=== PATIENT | female | born 1995 | race Caucasian/White ===

== ENCOUNTER 2018-03-12 06:39 | Inpatient (IN) | payer BC ==
[2018-03-12] MEDS ORDERED: Misoprostol 50 MCG (1/2 of 100 MCG) Tab ONE ×2 (07:29→12:15)
[2018-03-12] MEDS ORDERED: Ondansetron 4 MG/2 ML SDV IV PRN (07:37)
[2018-03-12] MEDS ORDERED: Acetaminophen 325 MG Tab PO PRN (07:37)
[2018-03-12] MEDS ORDERED: fentaNYL 100 MCG/2 ML SDV IVPUSH PRN (07:37)
[2018-03-12] MEDS ORDERED: Sodium Chloride 0.9% 10 ML Syringe FLUSH PRN (07:37)
[2018-03-12] MEDS ORDERED: Misoprostol 50 MCG (1/2 of 100 MCG) Tab VAG ONE ×2 (07:51→12:20)
--- NOTE | 2018-03-12 08:10 | PCM.LDHP ---
L&D History of Present Illness - General Date of Service: 03/12/18 (Induction 40 5/7) Admit Problem/Dx: Patient Status Order with Admit Dx/Problem 03/12/18 07:37 Patient Status [ADT] Routine Admission Diagnosis/Problem Admission Diagnosis/Problem Source of Information: Patient History Limitations: Reports: No Limitations - History of Present Illness Introduction:: 22 year old 40 5/7 RADHA 03/06/18 here for planned induction. 135/82 this am. Protein in urine and looks puffy today. Has had adequate care. Lab: Passed glucose at 124. GBS POSITIVE treated with PCN, ceftin allergy. Nursing staff to monitor for adverse reactions. Has tolerated amoxicillin in the past without problems. 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: : 1 Para: 0 LMP (Approximate): (RADHA 03/06/18) Dermatologic History: Reports: Other (See Below) Other Dermatologic History: rash with - Infectious Disease History Infectious Disease History: Reports: Chicken Pox - Past Surgical History HEENT Surgical History: Reports: Adenoidectomy, Tonsillectomy Social & Family History - Family History Family Medical History: Noncontributory - Tobacco Use Smoking Status *Q: Never Smoker Second Hand Smoke Exposure: No - Caffeine Use Caffeine Use: Reports: None - Recreational Drug Use Recreational Drug Use: No H&P Review of Systems - Review of Systems: Review Of Systems: See Below General: Reports: Other (puffy face today) HEENT: Reports: No Symptoms Pulmonary: Reports: No Symptoms Cardiovascular: Reports: Blood Pressure Problem (elevated this morning) Gastrointestinal: Reports: No Symptoms Genitourinary: Reports: No Symptoms Musculoskeletal: Reports: No Symptoms Skin: Reports: No Symptoms Psychiatric: Reports: No Symptoms Neurological: Reports: No Symptoms Hematologic/Lymphatic: Reports: No Symptoms Immunologic: Reports: No Symptoms L&D Exam - Exam Exam: See Below - Vital Signs Weight: 115.212 kg - OB Specific Contraction Intensity: random, not feeling them Movement: Active Heart Tones: Present Heart Tones per Min: 150 Heart Rate (FHR) Variability: Moderate (6-25 bmp) Presentation: Vertex Estimated Weight: 8# - Fernandez Score Fernandez Score Cervix Position: Midposition Fernandez Score Consistency: Soft Fernandez Score Effacement: 51-70% Fernandez Score Dilation: 3-4 cm Fernandez Score Infant's Station: -3 Fernandez Score Total: 7 - Exam General: Alert, Oriented HEENT: PERRLA, Hearing Intact, Mucosa Moist & [place], Pupils Equal, Pupils Reactive Neck: Supple, Trachea Midline Lungs: Clear to Auscultation, Normal Respiratory Effort Cardiovascular: Regular Rate, Regular Rhythm GI/Abdominal Exam: Normal Bowel Sounds, Soft Rectal Exam: Normal Exam, Normal Rectal Tone Genitourinary: Cervical dilitation, Enlarged uterus, Vaginal discharge Back Exam: Normal Inspection, Full Range of Motion Extremities: Normal Inspection, Normal Range of Motion, Non-Tender, No Pedal Edema Skin: Warm, Dry, Intact Neurological: Cranial Nerves Intact, Normal Gait Psychiatric: Alert, Normal Affect, Normal Mood - Patient Data Lab Results Last 24 hrs: Laboratory Results - last 24 hr 03/12/18 03/12/18 03/12/18 Range/Units 06:50 06:50 06:57 WBC 14.7 H (4.5-11.0) K/uL RBC 4.30 (3.30-5.50) M/uL Hgb 13.2 (12.0-15.0) g/dL Hct 39.2 (36.0-48.0) % MCV 91 (80-98) fL MCH 31 (27-31) pg MCHC 34 (32-36) % Plt Count 284 (150-400) K/uL Neut % (Auto) 73 H (36-66) % Lymph % (Auto) 17 L (24-44) % [place] % (Auto) 9 H (2-6) % Eos % (Auto) 1 L (2-4) % Baso % (Auto) 0 (0-1) % Urine Color Yellow Urine Appearance Slightly cloudy Urine pH 5.0 (4.5-8.0) Ur Specific [place] 1.020 (1.008-1.030) Urine Protein 30 H (NEGATIVE) mg/dL Urine Glucose (UA) Normal (NEGATIVE) mg/dL Urine Ketones Negative (NEGATIVE) mg/dL Urine Occult Blood Negative (NEGATIVE) Urine Nitrite Negative (NEGATIVE) Urine Bilirubin Negative (NEGATIVE) Urine Urobilinogen Normal (NORMAL) mg/dL Ur Leukocyte Esterase Moderate (NEGATIVE) Urine RBC Not seen (0-5) Urine WBC 10-20 H (0-5) Ur Epithelial Cells Many Amorphous Sediment Not seen Urine Bacteria Moderate Urine Mucus Many Urine Opiates Screen Negative (NEGATIVE) Ur Oxycodone Screen Negative (NEGATIVE) Urine Methadone Screen Negative (NEGATIVE) Ur Propoxyphene Screen Negative (NEGATIVE) Ur Barbiturates Screen Negative (NEGATIVE) Ur Tricyclics Screen Negative (NEGATIVE) Ur Phencyclidine Scrn Negative (NEGATIVE) Ur Amphetamine Screen Negative (NEGATIVE) U Methamphetamines Scrn Negative (NEGATIVE) Urine MDMA Screen Negative (NEGATIVE) U Benzodiazepines Scrn Negative (NEGATIVE) U Cocaine Metab Screen Negative (NEGATIVE) U Marijuana (THC) Screen Negative (NEGATIVE) Result Diagrams: 03/12/18 06:57 - Problem List (1) Elective induction of labor planned SNOMED Code(s): 509926103 ICD Code: [id number] - Status: Acute Current Visit: Yes (2) GBS (group B Streptococcus carrier), +RV culture, currently SNOMED Code(s): 9859902147372, [id number], 1973250550297 ICD Code: O99.820 - STREPTOCOCCUS B CARRIER STATE COMPLICATING Status: Acute Current Visit: Yes (3) SNOMED Code(s): 07764377 ICD Code: Z34.90 - ENCNTR FOR SUPRVSN OF NORMAL , UNSP, UNSP TRIMESTER Status: Acute Current Visit: Yes Qualifiers: Weeks of gestation: 40 weeks Qualified Code(s): Z3A.40 - 40 weeks gestation of Problem List Initiated/Reviewed/Updated: Yes Orders Last 24hrs: Active Orders 24 hr Category Date Time Status Patient Status [ADT] Routine ADT 03/12/18 07:37 Active Antiembolic Devices [RC] .Routine Care 03/12/18 07:41 Active Communication Order [RC] ASDIRECTED Care 03/12/18 07:37 Active Heart Tones [RC] PER UNIT ROUTINE Care 03/12/18 07:37 Active Non Stress Test [RC] Click to Edit Care 03/12/18 07:37 Active Notify Provider Vital Signs [RC] PRN Care 03/12/18 07:37 Active Notify Provider [RC] PRN Care 03/12/18 07:37 Active Peripheral IV Care [RC] . DIRECTED Care 03/12/18 07:41 Active VTE/DVT Education [RC] Click to Edit Care 03/12/18 07:41 Active Vital Signs [RC] PER UNIT ROUTINE Care 03/12/18 07:37 Active Regular Diet [DIET] Diet 03/12/18 Dinner Active Acetaminophen [Tylenol] Med 03/12/18 07:37 Active 650 mg PO Q4H PRN Ondansetron [Zofran] Med 03/12/18 07:37 Active 4 mg IV Q4H PRN Oxytocin/Normal Saline [Pitocin in NS 20 Units/1,000 ML Med 03/12/18 12:00 Active ] 20 unit in 1,000 ml IV ASDIRECTED Penicillin G Potassium [Pfizerpen] 2.5 millunits Med 03/12/18 12:30 Active Sodium Chloride 0.9% [Normal Saline] 50 ml IV Q4H Penicillin G Potassium [Pfizerpen] 5 millunits Med 03/12/18 08:30 Active Sodium Chloride 0.9% [Normal Saline] 100 ml IV ONETIME Sodium Chloride 0.9% [Saline Flush] Med 03/12/18 07:37 Active 10 ml FLUSH ASDIRECTED PRN fentaNYL [Sublimaze] Med 03/12/18 07:37 Active 100 mcg IVPUSH Q1H PRN DVT/VTE Prophylaxis Reflex [OM.PC] Routine Oth 03/12/18 07:37 Ordered Peripheral IV Insertion Adult [OM.PC] Routine Oth 03/12/18 07:37 Ordered Saline Lock Insert [OM.PC] Routine Oth 03/12/18 07:37 Ordered Resuscitation Status Routine Resus Stat 03/12/18 07:37 Ordered Medication Orders Acetaminophen (Tylenol) 650 mg PO Q4H PRN PRN Reason: Pain (Mild 1-3) and fever Fentanyl (Sublimaze) 100 mcg IVPUSH Q1H PRN PRN Reason: Pain (moderate 4-6) Penicillin G Potassium 5 (millunits/ Sodium Chloride) 100 mls @ 200 mls/hr IV ONETIME ONE Stop: 03/12/18 08:59 Penicillin G Potassium 2.5 (millunits/ Sodium Chloride) 50 mls @ 100 mls/hr IV Q4H GRIS Oxytocin/Sodium Chloride (Pitocin In Ns 20 Units/1,000 Ml) 20 unit in 1,000 mls @ 999 mls/hr IV ASDIRECTED GRIS; Protocol Ondansetron HCl (Zofran) 4 mg IV Q4H PRN PRN Reason: Nausea/Vomiting Sodium Chloride (Saline Flush) 10 ml FLUSH ASDIRECTED PRN PRN Reason: Keep Vein Open Assessment/Plan Comment:: 03/12/18 22 year old 40 07/09 here for planned induction of labor. Fernandez score 7. Minimal random contractions. Baseline FHT's 150. Category 1 tracing. SVE /-3 Misoprostol 50 mcg placed vaginally GBS POSITIVE treated Plan: Will reassess at 1230. [address] another dose of Misoprostol at that time. Pain medications per patient request. May eat after 1 hour. Intermittent monitoring. Nursing to monitor for adverse PCN affects.
[2018-03-12] MEDS ORDERED: Sodium Chloride 0.9% 1,000 ML IV SCH (08:15)
[2018-03-12] MEDS ORDERED: Sodium Chloride 0.9% 10 ML SDV IV SCH (08:15)
[2018-03-12] MEDS ORDERED: Penicillin G Potassium 5 MILLUNITS in Sodium Chloride 0.9% 100 ML IV ONE (08:30)
--- NOTE | 2018-03-12 12:26 | PCM.PNLD ---
Labor Progress Note - VS & Meds Vital Signs: Last Vital Signs Temp 97.8 F 03/12/18 10:00 Pulse 101 H 03/12/18 10:00 Resp 18 03/12/18 10:00 BP 119/79 03/12/18 10:00 Pulse Ox 93 L 03/12/18 10:00 Active Medications: Current Medications Acetaminophen (Tylenol) 650 mg PO Q4H PRN PRN Reason: Pain (Mild 1-3) and fever Fentanyl (Sublimaze) 100 mcg IVPUSH Q1H PRN PRN Reason: Pain (moderate 4-6) Penicillin G Potassium 2.5 (millunits/ Sodium Chloride) 50 mls @ 100 mls/hr IV Q4H GRIS Oxytocin/Sodium Chloride (Pitocin In Ns 20 Units/1,000 Ml) 20 unit in 1,000 mls @ 999 mls/hr IV ASDIRECTED GRIS; Protocol Sodium Chloride (Normal Saline) 1,000 mls @ 125 mls/hr IV ASDIRECTED GRIS Last Admin: 03/12/18 08:34 Dose: 125 mls/hr Misoprostol (Cytotec) 50 mcg VAG ONETIME ONE Stop: 03/12/18 12:21 Ondansetron HCl (Zofran) 4 mg IV Q4H PRN PRN Reason: Nausea/Vomiting Sodium Chloride (Saline Flush) 10 ml FLUSH ASDIRECTED PRN PRN Reason: Keep Vein Open Discontinued Medications Penicillin G Potassium 5 (millunits/ Sodium Chloride) 100 mls @ 200 mls/hr IV ONETIME ONE Stop: 03/12/18 08:59 Last Admin: 03/12/18 08:34 Dose: 200 mls/hr Misoprostol (Cytotec) Confirm Administered Dose 50 mcg .ROUTE .STK-MED ONE Stop: 03/12/18 07:30 Last Admin: 03/12/18 08:02 Dose: Not Given Misoprostol (Cytotec) 50 mcg VAG ONETIME ONE Stop: 03/12/18 07:52 Last Admin: 03/12/18 08:00 Dose: 50 mcg Misoprostol (Cytotec) Confirm Administered Dose 50 mcg .ROUTE .STK-MED ONE Stop: 03/12/18 12:16 - Uterine Contractions Uterine Monitoring Mode: External [place] Contraction Frequency (min): x2 Contraction Duration (sec): 40-80 Contraction Intensity: Mild Uterine Resting Tone: Soft - Monitoring Monitor Mode: External Ultrasound Heart Rate (FHR) Baseline: 150 Heart Rate (FHR) Variability: Moderate (6-25 bmp) Accelerations: Present, 15x15 Decelerations: None Strip Review: Category I - Vaginal Exam Dilation (cm): 2-3 Effacement (Percent): 60 Station: -1 Cervical Position: Midposition Sterile Vaginal Exam Performed By: Fernanda Jenkins Vaginal Exam Comment: baby has come down some - Labor Progress (Free Text) Labor Progress: No real contractions from the dose this morning. will repeat the dose and reassess at 1600. monitor for labor up and about after one hour of monitoring. 50 mcg Misoprostol placed vaginally at 1215
[2018-03-12] MEDS: Penicillin G Potassium 2.5 MILLUNITS in Sodium Chloride 0.9% 50 ML IV SCH ×3 (12:28→21:15)
--- NOTE | 2018-03-12 15:52 | PCM.PNLD ---
Labor Progress Note - VS & Meds Vital Signs: Last Vital Signs Temp 36.8 C 03/12/18 15:00 Pulse 96 03/12/18 15:00 Resp 18 03/12/18 15:00 BP 140/92 H 03/12/18 15:00 Pulse Ox 94 L 03/12/18 15:00 Active Medications: Current Medications Acetaminophen (Tylenol) 650 mg PO Q4H PRN PRN Reason: Pain (Mild 1-3) and fever Fentanyl (Sublimaze) 100 mcg IVPUSH Q1H PRN PRN Reason: Pain (moderate 4-6) Penicillin G Potassium 2.5 (millunits/ Sodium Chloride) 50 mls @ 100 mls/hr IV Q4H GRIS Last Admin: 03/12/18 12:28 Dose: 100 mls/hr Oxytocin/Sodium Chloride (Pitocin In Ns 20 Units/1,000 Ml) 20 unit in 1,000 mls @ 999 mls/hr IV ASDIRECTED GRIS; Protocol Sodium Chloride (Normal Saline) 1,000 mls @ 125 mls/hr IV ASDIRECTED GRIS Last Admin: 03/12/18 08:34 Dose: 125 mls/hr Ondansetron HCl (Zofran) 4 mg IV Q4H PRN PRN Reason: Nausea/Vomiting Sodium Chloride (Saline Flush) 10 ml FLUSH ASDIRECTED PRN PRN Reason: Keep Vein Open Discontinued Medications Penicillin G Potassium 5 (millunits/ Sodium Chloride) 100 mls @ 200 mls/hr IV ONETIME ONE Stop: 03/12/18 08:59 Last Admin: 03/12/18 08:34 Dose: 200 mls/hr Misoprostol (Cytotec) Confirm Administered Dose 50 mcg .ROUTE .STK-MED ONE Stop: 03/12/18 07:30 Last Admin: 03/12/18 08:02 Dose: Not Given Misoprostol (Cytotec) 50 mcg VAG ONETIME ONE Stop: 03/12/18 07:52 Last Admin: 03/12/18 08:00 Dose: 50 mcg Misoprostol (Cytotec) Confirm Administered Dose 50 mcg .ROUTE .STK-MED ONE Stop: 03/12/18 12:16 Last Admin: 03/12/18 12:28 Dose: Not Given Misoprostol (Cytotec) 50 mcg VAG ONETIME ONE Stop: 03/12/18 12:21 Last Admin: 03/12/18 12:15 Dose: 50 mcg - Uterine Contractions Uterine Monitoring Mode: External [place] Contraction Frequency (min): 3 Contraction Duration (sec): 50-80 Contraction Intensity: Mild Uterine Resting Tone: Soft - Monitoring Monitor Mode: External Ultrasound Heart Rate (FHR) Baseline: 150 Heart Rate (FHR) Variability: Moderate (6-25 bmp) Accelerations: Present, 15x15 Decelerations: None Strip Review: Category I - Vaginal Exam Dilation (cm): 4 Effacement (Percent): 70 Station: -1 Cervical Position: Midposition Sterile Vaginal Exam Performed By: Charmaine Little - Labor Progress (Free Text) Labor Progress: Patient comfortable. Contractions are not painful, she describes them as tightening.
[2018-03-12] MEDS ORDERED: Lactated Ringers 1,000 ML IV ONE (19:48)
[2018-03-12] MEDS ORDERED: ePHEDrine 50 MG/ML SDV IVPUSH ONE (19:48)
[2018-03-12] MEDS ORDERED: Ropivacaine 100 ML ONE (20:25)
--- NOTE | 2018-03-12 21:03 | PCM.PNLD ---
Labor Progress Note - VS & Meds Vital Signs: Last Vital Signs Temp 36.4 C 03/12/18 20:32 Pulse 89 03/12/18 20:32 Resp 18 03/12/18 20:32 BP 119/76 03/12/18 20:32 Pulse Ox 96 03/12/18 20:32 Active Medications: Current Medications Acetaminophen (Tylenol) 650 mg PO Q4H PRN PRN Reason: Pain (Mild 1-3) and fever Fentanyl (Sublimaze) 100 mcg IVPUSH Q1H PRN PRN Reason: Pain (moderate 4-6) Last Admin: 03/12/18 19:25 Dose: 100 mcg Penicillin G Potassium 2.5 (millunits/ Sodium Chloride) 50 mls @ 100 mls/hr IV Q4H GRIS Last Admin: 03/12/18 16:26 Dose: 100 mls/hr Oxytocin/Sodium Chloride (Pitocin In Ns 20 Units/1,000 Ml) 20 unit in 1,000 mls @ 999 mls/hr IV ASDIRECTED GRIS; Protocol Last Titration: 03/12/18 20:34 Dose: 4 mls/hr, 4 mls/hr Sodium Chloride (Normal Saline) 1,000 mls @ 125 mls/hr IV ASDIRECTED GRIS Last Admin: 03/12/18 08:34 Dose: 125 mls/hr Oxytocin/Sodium Chloride (Pitocin In Ns 20 Units/1,000 Ml) 20 unit in 1,000 mls @ 3 mls/hr IV TITRATE GRIS; Protocol Ondansetron HCl (Zofran) 4 mg IV Q4H PRN PRN Reason: Nausea/Vomiting Sodium Chloride (Saline Flush) 10 ml FLUSH ASDIRECTED PRN PRN Reason: Keep Vein Open Discontinued Medications Ephedrine Sulfate (Ephedrine Sulfate) 5 mg IVPUSH ONETIME ONE Stop: 03/12/18 19:49 Penicillin G Potassium 5 (millunits/ Sodium Chloride) 100 mls @ 200 mls/hr IV ONETIME ONE Stop: 03/12/18 08:59 Last Admin: 03/12/18 08:34 Dose: 200 mls/hr Lactated Ringer's (Ringers, Lactated) 1,000 mls @ 999 mls/hr IV .BOLUS ONE Stop: 03/12/18 20:48 Last Admin: 03/12/18 20:04 Dose: 999 mls/hr Ropivacaine (Naropin 0.2%) Confirm Administered Dose 100 mls @ as directed .ROUTE .STK-MED ONE Stop: 03/12/18 20:26 Misoprostol (Cytotec) Confirm Administered Dose 50 mcg .ROUTE .STK-MED ONE Stop: 03/12/18 07:30 Last Admin: 03/12/18 08:02 Dose: Not Given Misoprostol (Cytotec) 50 mcg VAG ONETIME ONE Stop: 03/12/18 07:52 Last Admin: 03/12/18 08:00 Dose: 50 mcg Misoprostol (Cytotec) Confirm Administered Dose 50 mcg .ROUTE .STK-MED ONE Stop: 03/12/18 12:16 Last Admin: 03/12/18 12:28 Dose: Not Given Misoprostol (Cytotec) 50 mcg VAG ONETIME ONE Stop: 03/12/18 12:21 Last Admin: 03/12/18 12:15 Dose: 50 mcg - Uterine Contractions Uterine Monitoring Mode: External [place] Contraction Frequency (min): 2 Contraction Duration (sec): 50 Contraction Intensity: Moderate to Strong Uterine Resting Tone: Soft - Monitoring Monitor Mode: External Ultrasound Heart Rate (FHR) Baseline: 150 Heart Rate (FHR) Variability: Moderate (6-25 bmp) Accelerations: Present, 15x15 Decelerations: None Strip Review: Category I - Vaginal Exam Dilation (cm): 6 Effacement (Percent): 90 Station: -1 Cervical Position: Midposition Sterile Vaginal Exam Performed By: Charmaine Little Vaginal Exam Comment: Feels ROBERT by sutures - Labor Progress (Free Text) Labor Progress: Patient progressing in labor normally. AROM done this afternoon which showed clear fluid. Fluid continues to be clear. Pitocin also started this afternoon. She did use the tub for pain control along with Fentanyl IV. She chose to get an epidural, she is comfortable now. SVE /-1. Category 1 tracing. Plan: Peanut ball and rotate side to side Anticipate normal spontaneous vaginal delivery Continue to increase pitocin as needed Continuos monitoring
[2018-03-12] MEDS ORDERED: Naloxone 0.4 MG/ML SDV IVPUSH PRN (21:15)
[2018-03-12] MEDS ORDERED: ePHEDrine 50 MG/ML SDV IV PRN (21:15)
[2018-03-13] MEDS ORDERED: Lactated Ringers 1,000 ML IV SCH (00:15)
--- NOTE | 2018-03-13 00:33 | PCM.PNLD ---
Labor Progress Note - VS & Meds Vital Signs: Last Vital Signs Temp 97.6 F 03/12/18 20:32 Pulse 100 03/12/18 22:05 Resp 18 03/12/18 22:05 BP 126/84 03/12/18 22:05 Pulse Ox 96 03/12/18 22:05 Active Medications: Current Medications Acetaminophen (Tylenol) 650 mg PO Q4H PRN PRN Reason: Pain (Mild 1-3) and fever Ephedrine Sulfate (Ephedrine Sulfate) 5 - 10 mg IV ASDIRECTED PRN PRN Reason: Systolic BP less than 100 Fentanyl (Sublimaze) 100 mcg IVPUSH Q1H PRN PRN Reason: Pain (moderate 4-6) Last Admin: 03/12/18 19:25 Dose: 100 mcg Penicillin G Potassium 2.5 (millunits/ Sodium Chloride) 50 mls @ 100 mls/hr IV Q4H GRIS Last Admin: 03/12/18 21:15 Dose: 100 mls/hr Oxytocin/Sodium Chloride (Pitocin In Ns 20 Units/1,000 Ml) 20 unit in 1,000 mls @ 999 mls/hr IV ASDIRECTED GRIS; Protocol Last Titration: 03/12/18 23:38 Dose: 36 mls/hr, 36 mls/hr Sodium Chloride (Normal Saline) 1,000 mls @ 125 mls/hr IV ASDIRECTED GRIS Last Admin: 03/12/18 08:34 Dose: 125 mls/hr Oxytocin/Sodium Chloride (Pitocin In Ns 20 Units/1,000 Ml) 20 unit in 1,000 mls @ 3 mls/hr IV TITRATE GRIS; Protocol Lactated Ringer's (Ringers, Lactated) 1,000 mls @ 125 mls/hr IV ASDIRECTED GRIS Last Admin: 03/13/18 00:12 Dose: 125 mls/hr Naloxone HCl (Narcan) 0.1 mg IVPUSH Q5M PRN PRN Reason: IF RESP RATE LESS THAN 6 Ondansetron HCl (Zofran) 4 mg IV Q4H PRN PRN Reason: Nausea/Vomiting Last Admin: 03/12/18 23:49 Dose: 4 mg Sodium Chloride (Saline Flush) 10 ml FLUSH ASDIRECTED PRN PRN Reason: Keep Vein Open Discontinued Medications Ephedrine Sulfate (Ephedrine Sulfate) 5 mg IVPUSH ONETIME ONE Stop: 03/12/18 19:49 Penicillin G Potassium 5 (millunits/ Sodium Chloride) 100 mls @ 200 mls/hr IV ONETIME ONE Stop: 03/12/18 08:59 Last Admin: 03/12/18 08:34 Dose: 200 mls/hr Lactated Ringer's (Ringers, Lactated) 1,000 mls @ 999 mls/hr IV .BOLUS ONE Stop: 03/12/18 20:48 Last Admin: 03/12/18 20:04 Dose: 999 mls/hr Ropivacaine (Naropin 0.2%) Confirm Administered Dose 100 mls @ as directed .ROUTE .STK-MED ONE Stop: 03/12/18 20:26 Misoprostol (Cytotec) Confirm Administered Dose 50 mcg .ROUTE .STK-MED ONE Stop: 03/12/18 07:30 Last Admin: 03/12/18 08:02 Dose: Not Given Misoprostol (Cytotec) 50 mcg VAG ONETIME ONE Stop: 03/12/18 07:52 Last Admin: 03/12/18 08:00 Dose: 50 mcg Misoprostol (Cytotec) Confirm Administered Dose 50 mcg .ROUTE .STK-MED ONE Stop: 03/12/18 12:16 Last Admin: 03/12/18 12:28 Dose: Not Given Misoprostol (Cytotec) 50 mcg VAG ONETIME ONE Stop: 03/12/18 12:21 Last Admin: 03/12/18 12:15 Dose: 50 mcg - Uterine Contractions Uterine Monitoring Mode: External [place] Contraction Frequency (min): 3-4 Contraction Duration (sec): 60 Contraction Intensity: Moderate to Strong Uterine Resting Tone: Soft - Monitoring Monitor Mode: External Ultrasound Heart Rate (FHR) Baseline: 150 Heart Rate (FHR) Variability: Moderate (6-25 bmp) Accelerations: Present, 15x15 Decelerations: None Strip Review: Category I - Vaginal Exam Dilation (cm): 10 Effacement (Percent): 90 Station: 2 Cervical Position: Posterior Sterile Vaginal Exam Performed By: Charmaine Little Vaginal Exam Comment: catput, Stalled , narrow pelvis - Labor Progress (Free Text) Labor Progress: pushing for 1 1/2 hour without progress. Has been stalled at plus 2 for over an hour. Narrow spines, Planned arrested descent proceed to C section OR crew notified.
[2018-03-13] MEDS ORDERED: Oxytocin 10 Units/1 ML SDV ONE ×2 (00:44→00:49)
[2018-03-13] MEDS ORDERED: Bupivacaine 0.5% 30 ML SDV ONE (00:44)
[2018-03-13] MEDS ORDERED: cefOXitin 1 GM Vial ONE (00:56)
[2018-03-13] MEDS ORDERED: cefOXitin 2 GM Vial ONE (00:56)
[2018-03-13] MEDS ORDERED: Ampicillin/Sulbactam Na 3 GM Vial ONE ×2 (01:25→01:58)
[2018-03-13] MEDS ORDERED: Lactated Ringers 1,000 ML ONE (01:27)
[2018-03-13] MEDS ORDERED: Ondansetron 4 MG/2 ML SDV ONE (01:27)
[2018-03-13] MEDS ORDERED: Morphine PF 10 MG/10 ML SDV ONE ×2 (01:46→09:39)
[2018-03-13] MEDS ORDERED: Sodium Chloride 0.9% 10 ML ONE ×2 (01:48→09:39)
[2018-03-13] MEDS ORDERED: fentaNYL 100 MCG/2 ML SDV ONE (01:51)
[2018-03-13] MEDS: Penicillin G Potassium 2.5 MILLUNITS in Sodium Chloride 0.9% 50 ML IV SCH (02:24)
[2018-03-13] MEDS ORDERED: Ampicillin/Sulbactam Na 3 GM in Sodium Chloride 0.9% 100 ML IV SCH (03:00)
--- NOTE | 2018-03-13 05:37 | ANES ---
DATE OF SERVICE: 03/12/2018 Labor Epidural Note I was called by the OB department for a young lady requesting a labor epidural in for a labor induction. Upon arriving at the bedside, a brief history and physical was done with the patient. The patient denies any abnormal bleeding issues, was normal . Platelet count was 284, hemoglobin was 13.2. Insignificant for any real issues in her health. Risks and benefits were reviewed with the patient and . The patient verbalized her understandings of the risks and benefits and wishes to proceed with the labor epidural today. She was then sat at the edge of the bed. Betadine prep x3 to the lumbar region was done. Sterile drape was placed. 1% lidocaine skin wheal and deep was done. A 17-gauge Tuohy needle was inserted at approximately the L3-L4 position. Loss of resistance was achieved at approximately 7 cm, negative paresthesia, negative heme, and negative CSF were noted. Catheter was then easily threaded through the [place]. Tuohy was then withdrawn and the catheter was pulled back to approximately 15 cm and secured. Sterile drape was taken down. Catheter was further secured at the 15 cm urmila. 3 mL test dose was done. The patient then was laid in the supine position with left uterine displacement and head of the bed slightly elevated. After 3 to 4 minutes, the patient showed no signs of local anesthetic toxicity or subarachnoid block. Heart rate maintained and patient was able to move her feet. I then proceeded to give the patient 12 mL of 0.2% ropivacaine bolus via the epidural and started her on a 0.2% ropivacaine drip at 12 mL an hour. The patient tolerated the procedure well. Vital signs were stable post bolus. The patient was starting to feel some relief upon leaving the bedside. Please refer to the nurse's notes for vital signs. The patient will be continued to monitor closely. Rubens Deleon CRNA /[id number]
[2018-03-13] MEDS ORDERED: Dextrose 5%-Lactated Ringers 1,000 ML IV SCH (07:15)
[2018-03-13] MEDS: Ampicillin/Sulbactam Na 3 GM in Sodium Chloride 0.9% 100 ML IV SCH ×3 (09:59→22:29)
--- NOTE | 2018-03-13 10:54 | PN ---
DATE OF SERVICE: 03/13/2018 SUBJECTIVE: Destiny Seaman had a section around 1 a.m. for term with failure to progress and she reports she has an epidural, pain is managed, midline incision. Urine output via Meza catheter was 900. Remainder of review of systems negative for any pertinent positives and negatives. OBJECTIVE: GENERAL: Destiny Seaman is a pleasant 22-year-old female. VITAL SIGNS: TPR 99, 96, 16. Blood pressure 102/68. HEENT: Negative. NECK: Supple. HEART: Regular rate and rhythm. LUNGS: Clear. ABDOMEN: Dressings dry and intact. Abdominal binder is on. EXTREMITIES: Reveal trace peripheral edema. ASSESSMENT: section and repair of umbilical hernia for term with failure to progress and umbilical hernia. PLAN: 1. Continue epidural. 2. Full liquid diet. 3. Decrease IV to 100 mL per hour. 4. Meza will be left in due to epidural and for accurate urinary output. 5. We will evaluate p.r.n. or in a.m. Yadira Fay PA-C /[id number]
--- NOTE | 2018-03-13 20:06 | ANES ---
DATE OF SERVICE: 03/13/2018 TIME: 0940 hour. I went up to evaluate Ms. Seaman for a dose of her epidural for pain. She was doing fine. Her vital signs were stable. She did have a little bit of itching in her face, but she says it is tolerable. I think, we are going to go ahead and dose her this morning and then probably pull the epidural. I did give her 5 mg of morphine diluted in 5 mL of saline. She tolerated the procedure very nicely. Her vital signs remained stable. We will continue to monitor her throughout her stay. Tee Jain CRNA /[id number]
[2018-03-14] MEDS: Acetaminophen/HYDROcodone 325-5 MG Tab PO PRN ×4 (04:17→19:11)
[2018-03-14] MEDS: Ampicillin/Sulbactam Na 3 GM in Sodium Chloride 0.9% 100 ML IV SCH ×4 (04:25→21:35)
[2018-03-14] MEDS ORDERED: Dextrose 5%-Lactated Ringers 1,000 ML IV SCH (07:15)
--- NOTE | 2018-03-14 08:35 | PN ---
DATE OF SERVICE: 03/14/2018 SUBJECTIVE: Destiny is postoperative day #2 following a section. Her epidural has been discontinued. Meza is out. Voiding without any difficulty. Pain is controlled with the [place]. She has no questions or concerns. OBJECTIVE: GENERAL: Destiny Seaman is a 22-year-old female. VITAL SIGNS: TPR is 98.1, 110, 18, blood pressure 101/52. HEENT: Negative. NECK: Supple. HEART: Regular rate and rhythm. LUNGS: Clear. ABDOMEN: Aquacel dressing is on. Abdominal binder. EXTREMITIES: Without peripheral edema. ASSESSMENT: section and repair of umbilical hernia for term with failure to progress and umbilical hernia. Date: 03/13/2018. PLAN: 1. Regular diet. 2. Milk of magnesia 30 mL one time followed by Dulcolax two tablets 1 hour later. 3. Colace 100 mg b.i.d. scheduled. 4. Good pulmonary toilet. 5. We will evaluate p.r.n. or in a.m. and plan discharge in a.m. Yadira Fay PA-C /[id number]
[2018-03-14] MEDS ORDERED: Magnesium Hydroxide 400 MG/5 ML Susp 30 ML Cup PO ONE (09:00)
[2018-03-14] MEDS: Docusate Sodium 100 MG Cap PO SCH ×2 (09:13→20:16)
[2018-03-14] MEDS ORDERED: Bisacodyl 5 MG Tab PO ONE (10:00)
[2018-03-14] MEDS ORDERED: Lanolin 100% Cream 40 GM Tube TOP PRN (15:22)
[2018-03-15] MEDS: Acetaminophen/HYDROcodone 325-5 MG Tab PO PRN ×2 (00:42→07:30)
[2018-03-15] MEDS: Ampicillin/Sulbactam Na 3 GM in Sodium Chloride 0.9% 100 ML IV SCH ×2 (04:48→10:01)
--- NOTE | 2018-03-15 08:20 | DISCH ---
ADMISSION DIAGNOSES: 1. Term . 2. Elective induction of labor planned. 3. Group B Streptococcus carrier and RV culture. DISCHARGE DIAGNOSES: section and repair of umbilical hernia for term with failure to progress and umbilical hernia, date of 03/13/2018. HISTORY: Destiny Seaman is a 22-year-old female, who came in for an elective induction at term . She had failure to progress and a was performed. Delivery of a viable male infant. No operative complications. Epidural was discontinued. Meza catheter discontinued. Activity was good. Pain was managed, and she was able to be discharged to home on 03/15/2018 without any complications. PHYSICAL EXAMINATION: GENERAL: Destiny Seaman is a 22-year-old female. VITAL SIGNS: Height is 5 feet 1.81 inches, weight is 253 pounds. TPR is 96.3, 90, 16. Blood pressure 101/64. HEENT: Negative. NECK: Supple. HEART: Regular rate and rhythm. LUNGS: Clear. ABDOMEN: Midline stapled incision is healing well, clean and dry. Abdominal binder is on. EXTREMITIES: With trace peripheral edema and no calf tenderness. DISPOSITION: Discharged to home. CONDITION: Stable and improving. FOLLOWUP APPOINTMENT: Yadira Fay PA-C, at [facility] on 03/22/2018 at 10:00 a.m. An appointment to be made with Fernanda Jenkins CNM, in 6 weeks. MEDICATIONS: Home prescriptions: 1. [place] 5/325 mg 1 to 2 every 4 hours p.r.n. pain, #40. 2. Colace 100 mg oral twice daily, #100. 3. Milk of magnesia 30 mL, take 1 daily, 2 doses were sent home with the patient. 4. Lanolin topical to use as directed and this was sent home with the patient. To resume home medication of vitamins 1 daily. DISCHARGE INSTRUCTIONS: 1. Diet after discharge: Usual diet as tolerated. Drink 8 to 10 glasses of water a day. 2. Activity: No lifting over 10 pounds and baby in car seat for 6 weeks. 3. Driving: Do not drive for 1 week and while on pain medication. 4. Shower/bathing: May shower. 5. Notify provider if any fever, increased pain, nausea or vomiting. 6. Wound incision care: Keep site clean and dry. Wear abdominal binder for 6 weeks and then as tolerated. 7. Special instruction: Use incentive spirometer 10 times every hour while awake for 1 week.
[2018-03-15] MEDS ORDERED: Magnesium Hydroxide 400 MG/5 ML Susp 30 ML Cup PO SCH (09:00)
[2018-03-15] MEDS: Docusate Sodium 100 MG Cap PO SCH (09:34)
--- NOTE | 2018-03-19 15:26 | OR ---
DATE OF PROCEDURE: 03/13/2018 PREOPERATIVE DIAGNOSIS: Term with failure to progress. POSTOPERATIVE DIAGNOSES: 1. Term with failure to progress. 2. Umbilical hernia. OPERATIVE PROCEDURES: 1. section (51015). 2. Repair of umbilical hernia (19301). ANESTHESIA: Epidural. CORN BREEDER: Dulce Jenkins CNM. INDICATION FOR PROCEDURE: This is a 22-year-old presenting with ongoing labor, which progressed with the baby being well down in the pelvis but the patient has been pushing for extended periods of time, decision was made to proceed with a section. Potential risks of the procedure including bleeding, infection, injury to underlying viscera, injury to the baby and her mother, and otherwise were all reviewed, and the patient wishes to proceed. DETAILS OF PROCEDURE: The patient was taken to the operating room. Epidural catheter was already in place and anesthetic doses were then initiated and Meza catheter inserted. The abdomen was then prepped and draped. The patient is fairly obese and a Pfannenstiel incision was felt to be a high risk for wound infection, and given this, a lower midline incision near the umbilicus down between the pubis was made and carried down through the full-thickness abdominal wall. Upon entering the peritoneal cavity, the peritoneal reflection of bladder on the uterus was reflected downward and a transverse lower uterine segment incision was made. The baby was at this point wedged densely into the pelvis and the ceramic tile installation helper staff at that point then pushed the baby upward which allowed delivery through vertex presentation. Cord was clamped and cut, and routine care given off the field. The baby upon delivery appeared to be in good condition with scores being at 1 and 5 minutes, 8 and 9 respectively. The patient was given IV and intrauterine oxytocin and IV Unasyn, and the placenta and membranes were then delivered without difficulty. The uterus was then closed with 2 layers of 2-0 Vicryl stitch as was the peritoneal reflection of bladder on the uterus. The patient was noted to have umbilical hernia which was then fixed within with a [id number] stitch of #2 Vicryl stitch. The posterior peritoneum linear semilnaris downward was then closed with a running 2-0 Vicryl stitch as well and the anterior fascia then closed with a running #2 Vicryl stitch as well. The subcutaneous tissue was irrigated with Cefoxtin-containing saline solution and the incision was then closed with a layer of 3-0 Vicryl stitch deep, 4-0 Vicryl subdermal stitch, and then katharine for the skin. Dressing was applied. The patient was then taken to the recovery room in satisfactory condition. There were no complications. Mayo Auguste MD /[id number]
== END 2018-03-15 11:57 | disposition home or self-care (01) | DRG 540 ==
LOC: JP.OB 06:39 → OBSVTOIN 03-13 01:34 → JP.MS 03-13 05:54
PROVIDERS: ADMIT Nurse Practitioner Family; ATTEND Surgery
PROC: 10907ZC Drainage of Amniotic Fluid, Therapeutic from Products of Conception, Via Natural or Artificial Opening (ICD-10-PCS; 2018-03-12)
PROC: 3E033VJ Introduction of Other Hormone into Peripheral Vein, Percutaneous Approach (ICD-10-PCS; 2018-03-12)
PROC: 3E0R3BZ Introduction of Anesthetic Agent into Spinal Canal, Percutaneous Approach (ICD-10-PCS; 2018-03-12)
PROC: 3E0P7VZ Introduction of Hormone into Female Reproductive, Via Natural or Artificial Opening (ICD-10-PCS; 2018-03-12)
PROC: 0WQF0ZZ Repair Abdominal Wall, Open Approach (ICD-10-PCS; principal; 2018-03-13)
PROC: 10D00Z1 Extraction of Products of Conception, Low, Open Approach (ICD-10-PCS; principal; 2018-03-13)
DX: O62.0 Primary inadequate contractions (principal); O99.824 Streptococcus B carrier state complicating childbirth; O75.89 Other specified complications of labor and delivery; K42.9 Umbilical hernia without obstruction or gangrene; Z3A.40 40 weeks gestation of pregnancy; Z37.0 Single live birth; Z67.10 Type A blood, Rh positive; Z88.8 Allergy status to other drugs, medicaments and biological substances
CPT/HCPCS: 36415; 51702; 59409; 80305-QW; 81001; 85025; 85027; 88307; A9270-GY; J0295; J0694; J2270; J2405; J2540; J2590; J2795; J3010; J3490; J7030; J7050; J7120

== ENCOUNTER 2021-07-09 19:03 | Inpatient (IN) | payer BC ==
[2021-07-09] MEDS ORDERED: HYDROmorphone 0.5 MG/0.5 ML Syringe IVPUSH ONE (19:39)
[2021-07-09] MEDS ORDERED: Sodium Chloride 0.9% 1,000 ML IV ONE (19:39)
[2021-07-09 21:06] LABS: CORONAVIRUS COVID-19 NAA NEGATIVE (NEGATIVE)
[2021-07-09] MEDS ORDERED: Morphine 4 MG/ML Syringe IVPUSH PRN ×3 (21:34)
[2021-07-09] MEDS ORDERED: diphenhydrAMINE 50 MG/ML SDV IVPUSH PRN ×2 (21:34)
[2021-07-09] MEDS ORDERED: Ondansetron 4 MG/2 ML SDV IVPUSH PRN (21:34)
[2021-07-09] MEDS ORDERED: Promethazine 25 MG in Sodium Chloride 0.9% 50 ML IV PRN (21:34)
[2021-07-09] MEDS ORDERED: Nicotine 21 MG/24 Hr Patch TRDERM PRN (21:34)
[2021-07-09] MEDS ORDERED: Scopolamine 1.5 MG Transdermal Patch TRDERM PRN (21:34)
[2021-07-09] MEDS ORDERED: fentaNYL 100 MCG/2 ML SDV IVPUSH PRN ×3 (21:34)
[2021-07-09] MEDS ORDERED: Promethazine 12.5 MG in Sodium Chloride 0.9% 50 ML IV PRN (21:34)
[2021-07-09] MEDS ORDERED: diphenhydrAMINE 25 MG Cap PO PRN (21:34)
[2021-07-09] MEDS: Sodium Chloride 0.9% 1,000 ML IV SCH (22:30)
[2021-07-10] MEDS: Sodium Chloride 0.9% 1,000 ML IV SCH (06:06)
[2021-07-10] MEDS ORDERED: Bupivacaine 0.5% 50 ML MDV ONE (07:15)
[2021-07-10] MEDS ORDERED: Morphine 2 MG/ML SYRINGE IVPUSH PRN ×2 (07:16→07:17)
[2021-07-10] MEDS ORDERED: Lidocaine 1% with EPINEPHrine 1:100,000 50 ML MDV ONE (07:16)
[2021-07-10] MEDS ORDERED: Neostigmine Methylsulfate 1 MG/ML 5 ML Syringe ONE (07:30)
[2021-07-10] MEDS ORDERED: Propofol 200 MG/20 ML SDV ONE (07:30)
[2021-07-10] MEDS ORDERED: Rocuronium 50 MG/5 ML Vial ONE (07:30)
[2021-07-10] MEDS ORDERED: Glycopyrrolate 0.2 MG/ML 5 ML MDV ONE (07:30)
[2021-07-10] MEDS ORDERED: Succinylcholine 200 MG/10 ML MDV ONE (07:30)
[2021-07-10] MEDS ORDERED: Ondansetron 4 MG/2 ML SDV ONE (07:30)
[2021-07-10] MEDS ORDERED: Dexamethasone 4 MG/ML SDV ONE (07:30)
[2021-07-10] MEDS ORDERED: fentaNYL 250 MCG/5 ML SDV ONE (07:31)
[2021-07-10] MEDS ORDERED: metroNIDAZOLE/Normal Saline 500 MG in Premix Bag 1 BAG IV ONE (07:45)
[2021-07-10] MEDS ORDERED: fentaNYL 100 MCG/2 ML SDV ONE (08:26)
[2021-07-10] MEDS ORDERED: Scopolamine 1.5 MG Transdermal Patch ONE (09:00)
[2021-07-10] MEDS ORDERED: VERIFY SCOP PATCH TOP SCH (09:00)
[2021-07-10] MEDS ORDERED: Ketorolac 30 MG/ML SDV ONE (09:01)
[2021-07-10] MEDS ORDERED: fentaNYL 100 MCG/2 ML SDV IVPUSH PRN ×3 (09:05)
[2021-07-10] MEDS ORDERED: Docusate Sodium 100 MG Cap PO PRN (09:05)
[2021-07-10] MEDS ORDERED: Zolpidem 5 MG Tab PO PRN (09:05)
[2021-07-10] MEDS ORDERED: Acetaminophen/HYDROcodone 325-5 MG Tab PO PRN (09:05)
[2021-07-10] MEDS ORDERED: Ondansetron 4 MG/2 ML SDV IVPUSH PRN (09:05)
[2021-07-10] MEDS ORDERED: hydrOXYzine HCL 100 MG/2 ML SDV IM PRN (09:05)
[2021-07-10] MEDS ORDERED: Benzocaine/Cetylpyridinium/Menthol Lozenge MUCMEM PRN (09:05)
[2021-07-10] MEDS ORDERED: Scopolamine 1.5 MG Transdermal Patch TOP ONE (09:15)
[2021-07-10] MEDS ORDERED: Acetaminophen 500 MG Tab PO PRN (10:52)
[2021-07-10] MEDS ORDERED: Acetaminophen 325 MG Tab PO PRN (10:55)
== END 2021-07-10 15:41 | disposition home or self-care (01) | DRG 263 ==
LOC: JP.ED 19:03 → JP.MS 21:14
PROVIDERS: ADMIT Surgery; ATTEND Surgery
PROC: 0FT44ZZ Resection of Gallbladder, Percutaneous Endoscopic Approach (ICD-10-PCS; principal; 2021-07-09)
DX: K80.10 Calculus of gallbladder with chronic cholecystitis without obstruction (principal); Z20.822 Contact with and (suspected) exposure to COVID-19; Z88.1 Allergy status to other antibiotic agents
CPT/HCPCS: 0241U; 36415; 80053; 83690; 85025; 88304; 96374; 99284; 99285-25; A9270-GY; J0171; J0330; J1100; J1170; J1885; J2405; J2704; J2710; J2795; J3010; J3490; J7030